=== PATIENT | male | born 1990 | race Caucasian/White ===

== ENCOUNTER 2022-08-06 23:55 | Emergency (ER) | payer BC, SELFPAY ==
[2022-08-07 00:04] VITALS: BP 142/89; PULSE 89; RESP 16; TEMP 36.7; O2SAT 97; BMI 23.0
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
[2022-08-07] MEDS: HYDROcodone-acetaminophen 5-325 mg Tablet 1 TAB PO (01:20)
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
[2022-08-07 02:29] VITALS: BP 111/76; PULSE 85; RESP 16; O2SAT 98
[2022-08-07 02:48] VITALS: BP 111/76; PULSE 85; RESP 16; TEMP 36.7; O2SAT 98
--- NOTE | 2022-08-07 10:17 | PC.SOCIAL ---
Addendum entered by Lisa England 08/16/22 15:33: Patient had a follow up appointment scheduled with ortho - patient did attend appointment. Original Note: Ortho Referral Referral to ortho at this time. Clinic to contact patient with appt date/time.
--- NOTE | 2022-08-07 10:18 | PC.SOCIAL ---
Addendum entered by Lisa England 08/18/22 12:28: legal department manager received the following message from the pulmonology clinic regarding followup appointment: Pt denied care Original Note: Ortho and Pulmonology Referral Referral to ortho and pulmonology clinics at this time. Clinics to contact patient with appt date/time.
== END 2022-08-07 02:49 | disposition home or self-care (01) ==
PROVIDERS: Emergency Provider Nurse Practitioner Family; PCP Nurse Practitioner Family
DX: S42.031A Displaced fracture of lateral end of right clavicle, initial encounter for closed fracture (principal); S22.31XA Fracture of one rib, right side, initial encounter for closed fracture; X58.XXXA Exposure to other specified factors, initial encounter; Y93.9 Activity, unspecified; Y92.9 Unspecified place or not applicable
CPT/HCPCS: 71250; 73030; 99284

== ENCOUNTER 2022-08-09 09:33 | Outpatient (CLI) | payer BC, SELFPAY ==
--- NOTE | 2022-08-09 10:15 | XR_ITS ---
WS: [id number] XR chest 2V* [id number] REASON FOR EXAM: PNEUMOTHORAX FINDINGS: The heart and the mediastinum are within normal limits. Calcified granulomatous disease in both hemithoraces. Possibly a tiny residual of pneumothorax over the right lung apex significantly reduced compared to t he examination of 08/07/2022. Comminuted fracture right clavicle. XR/XR chest 2V* [id number] IMPRESSION: Resolved/resolving small right pneumothorax.
== END 2022-08-09 09:34 | disposition home or self-care (01) ==
PROVIDERS: PCP Nurse Practitioner Family; Visit Provider Emergency Medicine
DX: J93.9 Pneumothorax, unspecified (principal)
CPT/HCPCS: 71046

== ENCOUNTER → 2022-08-10 07:25 | Outpatient (BNVA) | payer BC, SELFPAY | PROVIDERS: PCP Nurse Practitioner Family; Referring Provider Nurse Practitioner Family; Visit Provider Student in an Organized Health Care Education/Training Program | DX: S42.001A Fracture of unspecified part of right clavicle, initial encounter for closed fracture (principal); V89.9XXA Person injured in unspecified vehicle accident, initial encounter | CPT/HCPCS: 73000 ==

== ENCOUNTER 2022-08-15 10:37 | Day surgery (SDC) | payer BC, SELFPAY ==
[2022-08-14 11:48] VITALS: BMI 23.6
[2022-08-15] VITALS (14 sets, daily range): BP systolic 109–133; BP diastolic 68–96; PULSE 56–99; RESP 14–19; TEMP 36.1–36.8; O2SAT 97–100
--- NOTE | 2022-08-15 | XR_ITS ---
WS: [id number] [place] [id number] REASON FOR EXAM: CHERELLE PICS FINDINGS: Previously demonstrated comminuted fracture of the distal right clavicle has undergone fixation with plate and screws. The surgical appliances intact and in proper position and alignment. Fracture fragments are in good position and alignment. XR/[place] [id number] IMPRESSION: Right clavicle fracture with fixation as above.
[2022-08-15] MEDS: sodium chloride 0.9% 1,000 ML 30 ML IV (12:16)
[2022-08-15] MEDS: acetaminophen 1,000 MG/100 ML PIGGYBACK 400 MG IV (12:16)
[2022-08-15] MEDS: ketorolac 30 mg/mL INJ IVP (12:16)
--- NOTE | 2022-08-15 12:40 | W.PM.OPSUD ---
Surgery/Procedure H&P Update DATE OF PROCEDURE: August 15, 2022 DATE H&P PERFORMED: 08/10/22 CHANGES TO PREVIOUS DOCUMENTATION: None. Patient has had no change in HPI from previous office visit on 08/10/2022. Significant comminuted distal clavicle fracture. We talked about treatment options he understands risk benefits complication alternatives with surgery elects proceed with surgical intervention. All questions answered. Proceed with right clavicle open reduction internal fixation PREOP DIAGNOSIS: Right clavicle fracture PRIMARY INDICATION FOR PROCEDURE: Right clavicle fracture PLANNED PROCEDURE: Operation Date: 08/15/22 12:45 Proposed Procedures p ORIF right clavicle/ 94801,S42.001A(Right) - Santiago Levin DO
[2022-08-15] MEDS: fentaNYL 50 mcg/mL INJ 2mL IVP ×2 (12:50→15:28)
[2022-08-15] MEDS: scopolamine 1.5 Patch 1 PATCH TRANSDERMA (13:08)
--- NOTE | 2022-08-15 13:11 | ANES.PREANE2 ---
Pre-Anesthetic Assessment Height/Weight: Height 1.75 m Weight 72.575 kg Temp Pulse Resp BP Pulse Ox O2 Del Method 97.9 F 72 14 128/75 100 Room Air 08/15/22 11:35 08/15/22 13:00 08/15/22 13:00 08/15/22 13:00 08/15/22 12:45 08/15/22 13:00 Preop Diagnosis: Right clavicle fracture Operation Date: 08/15/22 12:45 Proposed Procedures p ORIF right clavicle/ 47570,S42.001A(Right) - Santiago Ollie, DO Familial anesthetic complications: none Was Beta Karen taken within 24 hours: N/A Was Clonidine taken within 24 hours: N/A Last intake: Intake Last Liquid Date 08/14/22 Last Liquid Time 20:00 Last Solid Date 08/14/22 Last Solid Time 18:00 Social No alcohol and No tobacco Exam alert, oriented x 3, clear to auscultation bilaterally and regular rate & rhythm Airway Mallampati: Class I Anesthetic Plan ASA status: 1 Anesthesia: General and Regional (specify below) Risk of > 500 ml blood loss (7ml/kg in children): No Medications/Allergies Home Medications Medication Instructions Recorded Confirmed Last Taken Type hydrocodone 5 mg-acetaminophen 325 1 tab PO Q6H PRN pain (scale score 08/07/22 08/14/22 08/13/22 Rx mg tablet 7-10) #12 tabs Allergies Allergy/AdvReac Type Severity Reaction Status Date / Time No Known Allergies Allergy Verified 08/14/22 11:46 Current Medications Generic Name Dose Route Start Last Admin Trade Name Kamariq PRN Reason Stop Dose Admin Fentanyl 50 mcg 08/15/22 11:49 08/15/22 12:50 Fentanyl 50 Mcg/Ml Inj 2ml IVP 50 mcg Q10M PRN Administration Preop Pain Sodium Chloride 1,000 mls @ 30 mls/hr 08/15/22 12:00 08/15/22 12:16 Sodium Chloride 0.9% IV 08/16/22 11:59 30 mls/hr .Q24H [place] Administration Scopolamine 1 patch 08/15/22 11:13 08/15/22 13:08 Scopolamine 1.5 Patch TRANSDERMA 1 patch ONCE PRN Administration anesthetic related nausea Data Anesthesia Blood Bank 08/15/22 12:05 Blood Type A Positive Rho(D) Type Positive Antibody Screen Negative Cardiac Studies: No Data to Display
--- NOTE | 2022-08-15 13:12 | ANES.PROC ---
Anesthesia Procedures Procedure/Date: 08/15/22 Nerve Block ^: Nerve Block 1: Main Anesthesia: general anesthesia Time Out Performed: Yes Consent: requested by attending/covering physician, from patient, from other, risks and benefits reviewed and patient agrees to proceed Nerve block location: interscalene (R) Anesthesia monitors applied: pulse oximetry, EKG, BP cuff and oxygen Nerve block position: semi sitting Anesthetic Used: lidocaine 1% and ropivicaine 0.5% Amount of anesthesia used (mL): 20 Nerve Stimulator Used?: No Interscalene/Femoral BLK: 2 stimuplex 22 g needle used for position and inplane approach, visualize local anesthetic spread and no vascular puncture identified Injection: neg aspiration of heme Patient Tolerated Procedure: well Complications: none
[2022-08-15] MEDS: ceFAZolin 2,000 MG in sodium chloride 0.9% (plus) 50 ML 100 MG IV (13:23)
[2022-08-15] MEDS: ondansetron 2 mg/ML SDV 2 mL 4 MG IVP (15:28)
--- NOTE | 2022-08-15 15:37 | PM.OP2 ---
Brief Operative Note Date of procedure: 08/15/22 Pre-op diagnosis: Right distal clavicle fracture Post-op diagnosis: same Procedure Done: Right distal clavicle open reduction internal fixation Surgeon: Santiago Levin Estimated blood loss (mL): 10 Complications: None Post-op Plan: Patient taken to PACU in stable condition recovering well. Will receive appropriate pain medication and discharge instructions postoperatively. Will be nonweightbearing to the right upper extremity at this time. Patient in abduction sling and pillow and will follow-up in the office in 2 weeks. All questions answered. Condition: stable Disposition: same day Coding Level of Care Code Acute Code for Tatyana Philly
--- NOTE | 2022-08-15 15:39 | PM.PACU ---
PACU note Narrative: Patient seen evaluated in PACU recovering well. Dressing on in place clean dry and intact patient is able to wiggle fingers and sensations intact light touch distally. Sling and abduction pillow is on in place. Right upper extremity is warm well-perfused brisk cap refill less than 2 seconds. Exam: awake Disposition: discharged
--- NOTE | 2022-08-15 15:40 | P.OP_ITS ---
Operative Report Date of procedure: August 15, 2022 Pre-op diagnosis: Preop Diagnosis Right clavicle fracture Post-op diagnosis: Same (right distal third clavicle fracture) Procedure done: Right distal clavicle fracture open reduction internal fixation Implants: Praful anatomic superior distal clavicle plate?4-hole Combination of locking and nonlocking 3.5 millimeter screws 1 cc of crushed cancellous with DBM [place] was placed at fracture site Surgeon: Santiago Levin DO Estimated blood loss: 10mL IV fluids: 500 mL Urine output: None Complications: None Findings: See operative report narrative Condition: stable Disposition: same day Brief History: Patient presents today as a pleasant 32-year-old male who sustained an injury to his right clavicle with combination of the distal third of the clavicle. History reveals patient has had a fracture to this in the past which I do feel as though some fragments are from an old healed injury. He has significant superior displacement of his fracture site greater than 100% at this point time through shared decision making he would like to have this fixed. At this point in time I feel given his young age as well as his displacement and that this is fracture is further distal benefits will be for earlier range of motion as well as better cosmesis and better union rates. Understanding his risk benefits complication alternatives with surgery he elects proceed with surgical intervention of a right clavicle fracture open reduction internal fixation. All questions answered. Consent obtained in office agrees to proceed with surgery. Procedure: Patient presented the preoperative holding area. Consent was reviewed and signed with patient. Operative extremity was then marked. Patient was then seen evaluated by the anesthesia department once cleared for surgery was brought back to the operative suite he is placed in supine position on a regular OR table. He then subsequently underwent anesthesia per the anesthesia department once appropriately anesthetized he was appropriately positioned in supine position all bony prominences well-padded patient was prepped secured to the bed. Once in appropriate position with a bump underneath the medial border of the scapula to help with reduction and positioning we then brought in large C arm to confirm appropriate imaging was able to be seen. Once confirmed appro priate x-ray imaging the right upper extremity/clavicle was then prepped and draped in standard orthopedic fashion. Final timeout performed. Patient received appropriate preoperative antibiotics. Standard curvilinear incision was made following the clavicle fracture this was starting at the mid shaft all the way over to the AC joint. Sharp scalpel excision was made through skin only. I then utilized electrocautery to maintain exact hemostasis. I utilized Littler dissection scissors and appropriate supraclavicular nerves were then protected throughout the case. I then utilized electrocautery to then elevate periosteal flaps around the distal clavicle at the fracture site. Then I utilized a blunt wood handle elevator to mobilize the periosteum medially to the midshaft which had appropriate positioning for my plate as well as laterally all the way to the AC joint to make sure I maximize the position of the plate given the distal nature of the fracture site as well as the combination. Patient's fracture site was then identified and it was significantly superiorly displaced and interposed in the muscle belly. I then utilized a [place] as well as a curette and disengaged this fracture fragment and utilizing [id number] clamps repositioned this to an anatomic reduction and appropriate position. I then brought in mini C arm and this was confirmed to be a satisfactory reduction this would be amendable with the distal third lateral superior plate with Perminova. This had multiple locking screw fixation options distally that would accommodate greater than 4 screws in my distal fracture fragment. I then selected the 4-hole plate placed this in appropriate position utilizing fluoroscopic imaging once I was satisfied that this was not within the AC joint and appropriate positioning reducing my fracture fragment maintaining the reduction I then subsequently drilled a nonlocking screw just medial to the fracture to secure the plate to bone. I utilized baby Homans underneath the collarbone to protect while drilling. Once this 1 was placed I then utilizing a clamp held the reduction of the main fragment of the distal fracture fragment against the plate and then utilized a drill bit and subsequently drilled bicortically measured and placed a bicortical nonlocking screw to compress the plate to bone distally. At this point in time I was satisfied with my plate po sition as well as maintenance of reduction. There was some comminuted fracture [place] anteriorly but at this point time there was no need for attempting lag screw fixation as there is more small pieces of multiple comminuted fragments plan was to leave these in standard bridge plating fashion. At this point I then proceeded with final fixation medially I subsequently drilled and placed an additional nonlocking screw in the most medial hole in my plate. And then I subsequently utilized locking screws around this and completed my medial fixation with a total of 4 screws into the medial fracture fragment. Then subsequently drilled measured and placed multiple 4 locking screws into the distal fracture fragment. I then swapped out the nonlocking screw for a another locking screw to make a total of 5 locking screws distally. This completed my construct fixation final x-rays were taken which showed satisfactory anatomic reduction of the distal third clavicle shaft fracture. Given the comminution as well as increased rates of possible nonunion at this site of the distal third of the clavicle I then inserted 1 cc of crushed cancellous DBM bone putty by Perminova into the fracture site to help encourage healing. Wound bed was then thoroughly irrigated. I then closed the periosteum with 0 Vicryl suture the subcutaneous layer was closed with 2-0 Vicryl suture and I closed the skin with a running Monocryl suture Dermabond and Steri-Strips. Patient was then placed in OpSite dressing. Patient was then placed in a sling with abduction pillow was awakened from anesthesia and taken to PACU in stable condition. Disposition: Patient taken to PACU in stable condition, recovering well. Patient will receive appropriate discharge instructions as well as pain medication postoperatively. We will follow-up with me in the office in 2 weeks. Strict nonweightbearing to the right upper extremity.
--- NOTE | 2022-08-15 16:28 | ANE.PACU2 ---
Inpatient post-anesthesia follow up: Airway intact: Yes Vital signs: Temperature 97.7 F Pulse Rate 74 Respiratory Rate 16 Blood Pressure 133/91 Pulse Oximetry 100 Oxygen Delivery Me thod Room Air Oxygen Flow Rate 6 Fraction of Inspir ed Oxygen Hydration adequate: Yes Nausea and vomiting: No Pain level: 1 Mental status: Baseline
== END 2022-08-15 17:05 | disposition home or self-care (01) ==
PROVIDERS: PCP Nurse Practitioner Family; Visit Provider Student in an Organized Health Care Education/Training Program
PROC: (CPT 23515; principal; 2022-08-15 12:25)
DX: S42.031A Displaced fracture of lateral end of right clavicle, initial encounter for closed fracture (principal); X58.XXXA Exposure to other specified factors, initial encounter
CPT/HCPCS: 23515; 36415; 73000; 76000; 86850; 86900; C1713; C1734; J0131; J0330; J0690; J1100; J1885; J2405; J2704; J3010; J3490; J7030

== ENCOUNTER → 2022-08-29 11:12 | Outpatient (BNVA) | payer BC, SELFPAY | PROVIDERS: PCP Nurse Practitioner Family; Visit Provider Student in an Organized Health Care Education/Training Program | DX: S42.001A Fracture of unspecified part of right clavicle, initial encounter for closed fracture (principal); X58.XXXA Exposure to other specified factors, initial encounter | CPT/HCPCS: 73000 ==

== ENCOUNTER → 2022-09-28 07:39 | Outpatient (BNVA) | payer BC, SELFPAY | PROVIDERS: PCP Nurse Practitioner Family; Visit Provider Student in an Organized Health Care Education/Training Program | DX: S42.001A Fracture of unspecified part of right clavicle, initial encounter for closed fracture (principal); X58.XXXA Exposure to other specified factors, initial encounter | CPT/HCPCS: 73000 ==